=== PATIENT | male | born 1970 | race Caucasian/White ===

== ENCOUNTER 2019-05-05 22:19 | Emergency (ER) | payer OTHER ==
[2019-05-05] MEDS ORDERED: PROTONIX 40 MG IV IV ONE ×2 (22:45→23:01)
[2019-05-05] MEDS ORDERED: Sodium Chloride 0.9% 1000 ML 1,000 ML IV STA ×2 (22:45→22:48)
[2019-05-05] MEDS ORDERED: DUONEB 0.5-3 MG/3 ml Neb IH ONE ×2 (22:49→23:15)
--- NOTE | 2019-05-05 22:50 | ERPHSYRPT ---
- History of Present Illness Time Seen by Provider: 05/05/19 22:30 Source: patient Exam Limitations: no limitations Patient Subjective Stated Complaint: pt states that he has been coughing up blood tonight, pt states that he was coughing so bad that he through up blood, pt states that he had a biopsy of a mass on lung on 04/19/19, pt states that he had PET scan on 04/26/19, pt is suppose to f/u with md on results, pt states that he took tylenol earlier for fever of 101 Triage Nursing Assessment: pt came into er via ambulance, pt c/o coughing of blood, pt is coughing continoulsy, pt coughed up moderate amount of blood tinged sputum, lung sounds are wheezing throughout, resopiration rate 28 Physician History: Patient has been coughing up blood for approximately 2 weeks since having a lung biopsy. This evening he coughed up much more after waking up that concerned him, so he came in to be evaluated. Timing/Duration: week(s) (2), sudden, worse (in the evening of 05/05/2019) Cough Quality/Degree: moderate, blood streaked sputum Possible Cause: frequent episodes (since having the lung biospy) Modifying Factors: Worsens With: coughing Associated Symptoms: cough, wheezing, No fever, No chills, No chest pain/ soreness, No dizziness, No earache, No facial pain, No headache, No lightheadedness, No muscle aches, No nasal congestion, No nasal drainage, No shortness of breath, No sinus infection, No sore throat International travel in last 2 weeks: No Allergies/Adverse Reactions: aspirin Allergy (Severe, Verified 05/05/19 22:39) Hives Home Medications: Albuterol Sulfate [Ventolin Hfa] 2 puffs PO Q4-6HPRN PRN 05/05/19 [History] Fluticasone/Umeclidin/Vilanter [Trelegy Ellipta 100-62.5-25] 1 puff PO DAILY 12/16 [History] Hx Tetanus, Diphtheria Vaccination/Date Given: Yes Hx Influenza Vaccination/Date Given: No Hx Pneumococcal Vaccination/Date Given: No - Review of Systems Constitutional: No Fever, No Chills, No Fatigue Eyes: No Eye Pain, No Vision Changes Ears, Nose, & Throat: No Mouth Pain, No Mouth Swelling, No Throat Pain, No Painful Swallowing Respiratory: Cough, No Cyanosis, No Dyspnea Cardiac: No Chest Pain, No Palpitations, No Syncope Abdominal/Gastrointestinal: No Abdominal Pain, No Nausea, No Vomiting, No Hematemesis, No Hematochezia, No Melena Genitourinary Symptoms: No Hematuria, No Flank Pain Musculoskeletal: No Back Pain, No Neck Pain, No Myalgias Skin: No Pruritis, No Rash Neurological: No Dizziness, No Focal Weakness, No Headache, No Lethargy, No Parasthesia, No Seizure, No Speech Changes Psychological: No Anxiety Hematologic/Lymphatic: No Easy Bleeding, No Easy Bruising All Other Systems: Reviewed and Negative - Past Medical History Neurological History: No Pertinent History ENT History: No Pertinent History Cardiac History: No Pertinent History Respiratory History: COPD Endocrine Medical History: No Pertinent History Musculoskeletal History: No Pertinent History GI Medical History: No Pertinent History History: No Pertinent History Psycho-Social History: No Pertinent History Male Reproductive Disorders: No Pertinent History - Past Surgical History Past Surgical History: Yes Other Surgical History: surgery to left wrist and finger - Social History Smoking Status: Current every day smoker How long have you smoked: 35 Exposure to second hand smoke: Yes Drug Use: none Patient Lives Alone: No - Nursing Vital Signs Nursing Vital Signs: Initial Vital Signs Temperature 98.2 F 05/05/19 22:22 Pulse Rate 107 H 05/05/19 22:22 Respiratory Rate 22 05/05/19 22:22 Blood Pressure 130/84 05/05/19 22:22 O2 Sat by Pulse Oximetry 94 L 05/05/19 22:22 Pain Scale Pain Intensity 0 - Physical Exam General Appearance: no apparent distress, alert Eye Exam: PERRL/EOMI, eyes nml inspection, No scleral icterus Ears, Nose, Throat Exam: No pharynx normal, No moist mucous membranes Neck Exam: normal inspection, non-tender, supple, full range of motion, No meningismus Respiratory Exam: airway intact, diminished breath sounds (lower lung [place]), wheezing (lower lung [place]), No chest tenderness, No respiratory distress, No crackles/rales, No rhonchi, No stridor Cardiovascular Exam: regular rate/rhythm, normal heart sounds, normal peripheral pulses, capillary refill <2 sec Gastrointestinal/Abdomen Exam: soft, normal bowel sounds, No tenderness, No distention, No rebound Back Exam: normal inspection, No CVA tenderness, No vertebral tenderness, No rash Extremity Exam: normal inspection, normal range of motion, pelvis stable, No calf tenderness, No jese's sign, No pedal edema Neurologic Exam: alert, oriented x 3, cooperative, cleaner and preparer II-XII nml as tested, normal mood/affect, sensation nml, No motor deficits Skin Exam: normal color, warm, dry, No rash, No petechiae, No cyanosis SpO2 Interpretation: normal SpO2: 96 O2 Delivery: Room Air - Course Nursing assessment & vital signs reviewed: Yes EKG Interpreted by Me: RATE (85), Sinus Rhythm, NORMAL AXIS, NORMAL INTERVALS, NORMAL QRS, NORMAL ST-T, Other (negative previous EKG for comparison) - CT Exams Chest CT Interpretation: Other (per radiologist interpretation: There is a cavitary mass in the right lower lobe and right infrahilar region with thick irregular richter measuring 5.9 x 4.2 x 6.2 cm suspicious for malignancy versus atypical infection. There are additional patchy opacity in the right lower lobe and right middle lobe and to a lesser extent right upper lobe suspicious for possible pneumonitis. no enlarged lymph nodes. no pneumothorax. No pleural effusion. No cardiomegaly. No pericardial effusion. No aortic aneurysm. No acute fractures. No abnormal soft tissues.) Abdomen/Pelvis CT Interpretation: Other (pper radiologist interpretation: There is borderline hepatomegaly. Normal gallbladder bile ducts with no calcified stones. No ductal dilation. Pancreas normal no ductal dilation. No splenomegaly. Normal renal with no mass. 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 Left kidney is unremarkable. Stomach is unremarkable. No distraction or mucosal thickening of the stomach or bowels. No evidence of appendicitis. No free air no significant fluid collection in the intraperitoneal space. No abdominal aortic aneurysm. No enlarged lymph nodes. Bladder, reproductive, bone/joint, soft tissues are unremarkable as visualized. Overall impression: No acute CT pathology or mass in the abdomen or pelvis.) Ordered Tests: Active Orders 24 hr Category Date Time Status EKG-ER Only STAT Care 05/05/19 22:45 Active IV Insertion STAT Care 05/05/19 22:45 Active NPO (ED) STAT Care 05/05/19 22:45 Active ABDOMEN AND PELVIS W CONTRAST [CT] Stat Exams 05/05/19 22:46 Ordered CHEST WITH CONTRAST [CT] Stat Exams 05/05/19 22:48 Ordered AMYLASE Stat Lab 05/05/19 22:30 Completed BLOOD CULTURE Stat Lab 05/05/19 23:20 Received CBC W DIFF Stat Lab 05/05/19 22:30 Completed CMP Stat Lab 05/05/19 22:30 Completed ETHYL ALCOHOL Stat Lab 05/05/19 22:30 Completed LIPASE Stat Lab 05/05/19 22:30 Completed Lactic Acid Stat Lab 05/05/19 23:25 Completed PREALBUMIN Stat Lab 05/05/19 22:30 Completed PROTIME WITH INR Stat Lab 05/05/19 22:30 Completed PTT Stat Lab 05/05/19 22:30 Completed TROPONIN Q3H Lab 05/05/19 22:30 Completed TROPONIN Q3H Lab 05/06/19 01:45 Ordered TROPONIN Q3H Lab 05/06/19 04:45 Ordered TROPONIN Q3H Lab 05/06/19 07:45 Ordered TROPONIN Q3H Lab 05/06/19 10:45 Ordered UA W/RFX UR CULTURE Stat Lab 05/05/19 23:10 Completed Peak Expiratory Flow Rate ONCE RT 05/05/19 23:17 Active Respiratory Therapy Assessment DAILY RT 05/05/19 23:17 Active Respiratory Therapy Consult ONCE RT 05/05/19 23:17 Completed Medication Summary Discontinued Medications Generic Name Dose Route Start Last Admin Trade Name Freq PRN Reason Stop Dose Admin Albuterol/Ipratropium 3 ml 05/05/19 22:49 05/05/19 23:18 Duoneb 0.5-3 Mg/3 Ml Neb IH 05/05/19 22:50 3 ml STAT ONE Administration Albuterol/Ipratropium Confirm 05/05/19 23:15 Duoneb 0.5-3 Mg/3 Ml Neb Administered 05/05/19 23:16 Dose 3 ml IH .STK-MED ONE Sodium Chloride 1,000 mls @ 999 mls/hr 05/05/19 22:45 05/05/19 23:07 Sodium Chloride 0.9% 1000 Ml IV 05/05/19 23:45 999 mls/hr .Q1H1M STA Administration Sodium Chloride 1,000 mls @ 999 mls/hr 05/05/19 22:48 Sodium Chloride 0.9% 1000 Ml IV 05/05/19 23:48 .Q1H1M STA Sodium Chloride Confirm 05/05/19 23:01 Sodium Chloride 0.9% 1000 Ml Administered 05/05/19 23:02 Dose 1,000 mls @ ud .ROUTE .STK-MED ONE Sodium Chloride Confirm 05/06/19 00:36 Sodium Chloride 0.9% 1000 Ml Administered 05/06/19 00:37 Dose 1,000 mls @ ud .ROUTE .STK-MED ONE Pantoprazole Sodium 40 mg 05/05/19 22:45 05/05/19 23:07 Protonix 40 Mg Iv IV 05/05/19 22:46 40 mg STAT ONE Administration Pantoprazole Sodium Confirm 05/05/19 23:01 Protonix 40 Mg Iv Administered 05/05/19 23:02 Dose 40 mg IV .STK-MED ONE Potassium Chloride 40 meq 05/06/19 00:14 Klor Con 10 Meq PO 05/06/19 00:15 STAT ONE Potassium Chloride Confirm 05/06/19 00:36 Klor Con 10 Meq Administered 05/06/19 00:37 Dose 10 meq PO .STK-MED ONE Lab/Rad Data: Laboratory Result Diagrams 05/05/19 22:30 05/05/19 22:30 Laboratory Results 05/05/19 05/05/19 05/05/19 Range/Units 23:25 23:10 22:30 WBC (4.0-10.5) K/mm3 RBC (4.1-5.6) M/mm3 Hgb (12.5-18.0) gm/dl Hct (42-50) % MCV (78-100) fl MCH (26-32) pg MCHC (32-36) g/dl RDW (11.5-14.0) % Plt Count (150-450) K/mm3 MPV (6-9.5) fl Gran % (36.0-66.0) % Eos # (Auto) (0-0.5) Absolute Lymphs (auto) (1.0-4.6) Absolute Monos (auto) (0.0-1.3) Lymphocytes % (24.0-44.0) % Monocytes % (0.0-12.0) % Eosinophils % (0.00-5.0) % Basophils % (0.0-0.4) % Absolute Granulocytes (1.4-6.9) Basophils # (0-0.4) PT (8.83-12.87) SECONDS INR (0.8-3.0) APTT (24.1-36.1) SECONDS Sodium (137-145) mmol/L Potassium (3.5-5.1) mmol/L Chloride (98-107) mmol/L Carbon Dioxide (22-30) mmol/L Anion Gap (5-15) MEQ/L BUN (9-20) mg/dL Creatinine (0.66-1.25) mg/dL Estimated GFR ML/MIN Glucose (74-106) mg/dL Lactic Acid 1.6 (0.4-2.0) Calcium (8.4-10.2) mg/dL Total Bilirubin (0.2-1.3) mg/dL AST (17-59) U/L ALT (0-50) U/L Alkaline Phosphatase (38-126) U/L Troponin I (0.000-0.034) ng/mL Serum Total Protein (6.3-8.2) g/dL Albumin (3.5-5.0) g/dL Prealbumin (17.6-36.0) mg/dL Amylase (30-110) U/L Lipase (23-300) U/L Urine Color YELLOW (YELLOW) Urine Appearance CLEAR (CLEAR) Urine pH 6.0 (5-6) Ur Specific [place] 1.005 (1.005-1.025) Urine Protein NEGATIVE (Negative) Urine Ketones NEGATIVE (NEGATIVE) Urine Blood SMALL (0-5) Blane/ul Urine Nitrite NEGATIVE (NEGATIVE) Urine Bilirubin NEGATIVE (NEGATIVE) Urine Urobilinogen 2 (0-1) mg/dL Ur Leukocyte Esterase NEGATIVE (NEGATIVE) Urine WBC (Auto) NONE (0-5) /HPF Urine RBC (Auto) NONE (0-2) /HPF U Epithel Cells (Auto) NONE (FEW) /HPF Urine Bacteria (Auto) NONE (NEGATIVE) /HPF Urine Mucus (Auto) SLIGHT (NEGATIVE) /HPF Urine Culture Reflexed NO (NO) Urine Glucose NEGATIVE (NEGATIVE) mg/dL Ethyl Alcohol 132 H (0-10) mg/dL 05/05/19 05/05/19 05/05/19 Range/Units 22:30 22:30 22:30 WBC (4.0-10.5) K/mm3 RBC (4.1-5.6) M/mm3 Hgb (12.5-18.0) gm/dl Hct (42-50) % MCV (78-100) fl MCH (26-32) pg MCHC (32-36) g/dl RDW (11.5-14.0) % Plt Count (150-450) K/mm3 MPV (6-9.5) fl Gran % (36.0-66.0) % Eos # (Auto) (0-0.5) Absolute Lymphs (auto) (1.0-4.6) Absolute Monos (auto) (0.0-1.3) Lymphocytes % (24.0-44.0) % Monocytes % (0.0-12.0) % Eosinophils % (0.00-5.0) % Basophils % (0.0-0.4) % Absolute Granulocytes (1.4-6.9) Basophils # (0-0.4) PT 14.8 H (8.83-12.87) SECONDS INR 1.30 (0.8-3.0) APTT 27.8 (24.1-36.1) SECONDS Sodium (137-145) mmol/L Potassium (3.5-5.1) mmol/L Chloride (98-107) mmol/L Carbon Dioxide (22-30) mmol/L Anion Gap (5-15) MEQ/L BUN (9-20) mg/dL Creatinine (0.66-1.25) mg/dL Estimated GFR ML/MIN Glucose (74-106) mg/dL Lactic Acid (0.4-2.0) Calcium (8.4-10.2) mg/dL Total Bilirubin (0.2-1.3) mg/dL AST (17-59) U/L ALT (0-50) U/L Alkaline Phosphatase (38-126) U/L Troponin I (0.000-0.034) ng/mL Serum Total Protein (6.3-8.2) g/dL Albumin (3.5-5.0) g/dL Prealbumin 9.06 L (17.6-36.0) mg/dL Amylase (30-110) U/L Lipase (23-300) U/L Urine Color (YELLOW) Urine Appearance (CLEAR) Urine pH (5-6) Ur Specific [place] (1.005-1.025) Urine Protein (Negative) Urine Ketones (NEGATIVE) Urine Blood (0-5) Blane/ul Urine Nitrite (NEGATIVE) Urine Bilirubin (NEGATIVE) Urine Urobilinogen (0-1) mg/dL Ur Leukocyte Esterase (NEGATIVE) Urine WBC (Auto) (0-5) /HPF Urine RBC (Auto) (0-2) /HPF U Epithel Cells (Auto) (FEW) /HPF Urine Bacteria (Auto) (NEGATIVE) /HPF Urine Mucus (Auto) (NEGATIVE) /HPF Urine Culture Reflexed (NO) Urine Glucose (NEGATIVE) mg/dL Ethyl Alcohol (0-10) mg/dL 05/05/19 05/05/19 05/05/19 Range/Units 22:30 22:30 22:30 WBC 10.4 (4.0-10.5) K/mm3 RBC 4.45 (4.1-5.6) M/mm3 Hgb 13.6 (12.5-18.0) gm/dl Hct 40.2 L (42-50) % MCV 90.3 (78-100) fl MCH 30.6 (26-32) pg MCHC 33.8 (32-36) g/dl RDW 14.0 (11.5-14.0) % Plt Count 318 (150-450) K/mm3 MPV 8.7 (6-9.5) fl Gran % 75.3 H (36.0-66.0) % Eos # (Auto) 0.08 (0-0.5) Absolute Lymphs (auto) 1.58 (1.0-4.6) Absolute Monos (auto) 0.90 (0.0-1.3) Lymphocytes % 15.1 L (24.0-44.0) % Monocytes % 8.6 (0.0-12.0) % Eosinophils % 0.8 (0.00-5.0) % Basophils % 0.2 (0.0-0.4) % Absolute Granulocytes 7.86 H (1.4-6.9) Basophils # 0.02 (0-0.4) PT (8.83-12.87) SECONDS INR (0.8-3.0) APTT (24.1-36.1) SECONDS Sodium 131 L (137-145) mmol/L Potassium 3.2 L (3.5-5.1) mmol/L Chloride 92 L (98-107) mmol/L Carbon Dioxide 26 (22-30) mmol/L Anion Gap 16.7 H (5-15) MEQ/L BUN 7 L (9-20) mg/dL Creatinine 0.53 L (0.66-1.25) mg/dL Estimated GFR > 60.0 ML/MIN Glucose 137 H (74-106) mg/dL Lactic Acid (0.4-2.0) Calcium 8.9 (8.4-10.2) mg/dL Total Bilirubin 0.70 (0.2-1.3) mg/dL AST 21 (17-59) U/L ALT 14 (0-50) U/L Alkaline Phosphatase 91 (38-126) U/L Troponin I < 0.012 (0.000-0.034) ng/mL Serum Total Protein 7.5 (6.3-8.2) g/dL Albumin 3.7 (3.5-5.0) g/dL Prealbumin (17.6-36.0) mg/dL Amylase 67 (30-110) U/L Lipase 69 (23-300) U/L Urine Color (YELLOW) Urine Appearance (CLEAR) Urine pH (5-6) Ur Specific [place] (1.005-1.025) Urine Protein (Negative) Urine Ketones (NEGATIVE) Urine Blood (0-5) Blane/ul Urine Nitrite (NEGATIVE) Urine Bilirubin (NEGATIVE) Urine Urobilinogen (0-1) mg/dL Ur Leukocyte Esterase (NEGATIVE) Urine WBC (Auto) (0-5) /HPF Urine RBC (Auto) (0-2) /HPF U Epithel Cells (Auto) (FEW) /HPF Urine Bacteria (Auto) (NEGATIVE) /HPF Urine Mucus (Auto) (NEGATIVE) /HPF Urine Culture Reflexed (NO) Urine Glucose (NEGATIVE) mg/dL Ethyl Alcohol (0-10) mg/dL - Progress Progress: re-examined Air Movement: good Progress Note: 05/06/19 00:47 No further hemoptysis during his time in the emergency department. Patient has an appointment with Dr Wei, Medicare Interviewer, on 05/07/2019 to review his pathology results from his biopsies performed during bronchoscopy. Patient is resting comfortably without any distress. 05/06/19 00:54 Discussed the case with Dr Jonny Dillon, ED attending at [facility] emergency department. Dr Dillon accepted the patient for transfer. Blood Culture(s) Obtained: Yes Antibiotics given: No Counseled pt/family regarding: lab results, diagnosis, need for follow-up, rad results - Departure Departure Disposition: Transfer ([facility] in [place], [place]) Clinical Impression: Major hemoptysis, Pulmonary cavitary lesion, Opacity of lung on imaging study, Hypokalemia, Elevated blood pressure reading without diagnosis of hypertension Condition: Fair Critical Care Time: No
[2019-05-05 23:00] LABS: Absolute Neutrophil Ct (ANC) 7.86 (1.4-6.9); BASOPHIL % 0.2 % (0.0-0.4); Basophil (Absolute #) 0.02 (0-0.4); Eosinophil % 0.8 % (0.00-5.0); Eosinophil (Absolute #) 0.08 (0-0.5); Hematocrit 40.2 % (42-50); Hemoglobin 13.6 gm/dl (12.5-18.0); Lymphocyte (Absolute #) 1.58 (1.0-4.6); Lymphocytes % 15.1 % (24.0-44.0); Mean Cell Volume 90.3 fl (78-100); Mean Corpuscular Hemoglobin 30.6 pg (26-32); Mean Corpuscular Hgb Concent. 33.8 g/dl (32-36); Mean Platelet Volume 8.7 fl (6-9.5); Monocytes % 8.6 % (0.0-12.0); Neutrophil % 75.3 % (36.0-66.0); Platelet Count 318 K/mm3 (150-450); Red Blood Count 4.45 M/mm3 (4.1-5.6); White Blood Count 10.4 K/mm3 (4.0-10.5)
[2019-05-05] MEDS ORDERED: Sodium Chloride 0.9% 1000 ML 1,000 ML ONE (23:01)
[2019-05-05 23:04] LABS: INR 1.3 (0.8-3.0); PROTIME 14.8 SECONDS (8.83-12.87)
[2019-05-05 23:07] LABS: ALBUMIN 3.7 g/dL (3.5-5.0); ALKALINE PHOSPHATASE 91 U/L (38-126); AMYLASE 67 U/L (30-110); ANION GAP 16.7 MEQ/L (5-15); BLOOD UREA NITROGEN 7 mg/dL (9-20); CHLORIDE 92 mmol/L (98-107); Calcium 8.9 mg/dL (8.4-10.2); Carbon Dioxide 26 mmol/L (22-30); Creatinine 1 0.53 mg/dL (0.66-1.25); Glucose 137 mg/dL (74-106); LIPASE 69 U/L (23-300); Potassium 3.2 mmol/L (3.5-5.1); SGOT/AST 21 U/L (17-59); SGPT/ALT 14 U/L (0-50); SODIUM 131 mmol/L (137-145); Total Protein 7.5 g/dL (6.3-8.2)
[2019-05-05 23:35] LABS: Appearance CLEAR (CLEAR); Bilirubin NEGATIVE (NEGATIVE); Glucose NEGATIVE (NEGATIVE); Ketones NEGATIVE (NEGATIVE); Leukocyte Esterase NEGATIVE (NEGATIVE); Mucus SLIGHT /HPF (NEGATIVE); Nitrite NEGATIVE (NEGATIVE); Protein,Urine Dip NEGATIVE (Negative); Specific Gravity 1.005 (1.005-1.025); Urobilinogen 2 mg/dL (0-1)
[2019-05-05 23:38] LABS: Blood SMALL Ery/ul (0-5)
[2019-05-06] MEDS ORDERED: Klor Con 10 MEQ PO ONE ×2 (00:14→00:36)
[2019-05-06] MEDS ORDERED: Sodium Chloride 0.9% 1000 ML 1,000 ML ONE (00:36)
[2019-05-06 01:10] VITALS: BP 147/84; PULSE 113
[2019-05-06 02:02] VITALS: O2SAT 92
--- NOTE | 2019-05-06 08:57 | XRAY ---
Indication: Hemoptysis following right lung biopsy April 19, 2019. Multiple contiguous axial images obtained through the abdomen and pelvis using 80 cc Isovue 370 contrast only. Comparison: None CT chest reported separately. Noncontrasted stomach and bowel loops appear nonobstructed. Right kidney is absent. Gallbladder contracted without gallstones or biliary distention. No free fluid/air. Remaining liver, pancreas, spleen, adrenal glands, left kidney, left ureter, and bladder appear unremarkable. Minimal aortoiliac calcifications. No AAA or pathologic retroperitoneal lymphadenopathy. Osseous structures intact with minimal degenerative changes in the lumbar spine. Impression: 1. Absent right kidney either developmental versus total nephrectomy. 2. Remaining CT abdomen/pelvis with contrast exam is negative.. Comment: Preliminary interpretation was made by [facility]. No critical discrepancy. CT DI 5.37
--- NOTE | 2019-05-06 08:58 | XRAY ---
Indication: Hemoptysis following right lung biopsy April 19, 2019. Multiple contiguous axial images obtained through the chest using 80 cc Isovue 370 contrast. Comparison: None Lung are inflated with right infrahilar cavitary mass measuring 5.9 x 4.2 x 6.2 cm. Finding appears contiguous with mild right perihilar lymphadenopathy seen encompassing the right middle and right lower lobe pulmonary arteries along with effacement of the right middle/right lower lobe bronchi. Right mid to lower lung demonstrates diffuse patchy airspace opacities with several appearing consolidating especially in the right lower lobe. Subtle hazy airspace opacities seen in the medial left lower lobe. No large effusion. Heart is not enlarged. Aorta is normal in course and caliber. No pathologic mediastinal or left hilar lymphadenopathy. Bony thorax intact. CT abdomen/pelvis reported separately. Impression: 1. Right infrahilar cavitary mass with perihilar lymphadenopathy with mass effect as detailed worrisome for malignancy and presumed recently biopsied. 2. Right middle/lower lobe and subtle left lower lobe airspace disease. Comment: Preliminary interpretation was made by [facility]. No critical discrepancy. CT DI 11.84
== END 2019-05-06 02:00 | disposition short-term general hospital (02) ==
LOC: ED 22:19
DX: R04.2 Hemoptysis (principal); J98.4 Other disorders of lung; E87.6 Hypokalemia; R03.0 Elevated blood-pressure reading, without diagnosis of hypertension; R91.8 Other nonspecific abnormal finding of lung field; Z79.899 Other long term (current) drug therapy
CPT/HCPCS: 36000; 36415; 71260; 74177; 80053; 81001; 82150; 83605; 83690; 84134; 84484; 85025; 85610; 85730; 87040; 93005; 94150; 94640; 96360; 96361; 96374; 99285; G0480; 80307; A9270-GY

== ENCOUNTER 2019-11-12 17:24 | Emergency (ER) | payer MEDICAID ==
--- NOTE | 2019-11-12 17:53 | ERPHSYRPT ---
- History of Present Illness Time Seen by Provider: 11/12/19 17:40 Source: patient Exam Limitations: no limitations Physician History: Patient is a 49-year-old male presents to our ED with complaints of right-sided chest pain that has been progressively worsening over the past 3 days.. Patient has been experiencing right-sided chest pain intermittently and is currently wearing Holter monitor. Patient advises staff that he has a history of cardiac stents. He does not know when they were placed or how many. Patient is currently on Brilinta. Patient also has history of lung cancer. He is currently on chemo and radiation. Patient receives his care primarily at [facility]. Patient's pain described as pleuritic. Pain worse with deep inspiration. Pain improved somewhat at rest. No associated nausea vomiting or diaphoresis. No trauma. No fevers. No diarrhea. No rash. Symptoms are moderate in intensity. Patient voices no other complaints at this time. Activities at Onset: none Severity of Dyspnea-Max: moderate Severity of Dyspnea-Current: mild Possible Cause: no prior episodes Modifying Factors: Improves With: nothing Associated Symptoms: constant, chest pain/discomfort, painful breathing, No edema, No fever, No lightheadedness, No ankle swelling, No lightheadedness, No sweating Allergies/Adverse Reactions: aspirin Allergy (Severe, Verified 05/05/19 22:39) Hives Home Medications: Albuterol Sulfate [Ventolin Hfa] 2 puffs PO Q4-6HPRN PRN 05/05/19 [History] Atorvastatin Calcium 40 mg PO DAILY 11/12/19 [History] Fluticasone/Umeclidin/Vilanter [Trelegy Ellipta 100-62.5-25] 1 inh PO DAILY [History] Hydrocodone/Acetaminophen [Hydrocodone-Acetamin 5-325 mg] 1 each PO QAM [History] Ipratropium/Albuterol Sulfate [Iprat-Albut 0.5-3(2.5) mg/3 ml] 3 ml IH UD [History] Metoprolol Tartrate 50 mg [Lopressor 50 MG] 50 mg PO BID 11/12/19 [History ] Morphine Sulfate [Morphine Sulfate ER] 30 mg PO BID 11/12/19 [History] Ondansetron [Ondansetron Odt] 8 mg SL QAM 11/12/19 [History] Prochlorperazine Maleate 10 mg PO UD PRN 11/12/19 [History] Tamsulosin HCl 0.4 mg PO DAILY 11/12/19 [History] Ticagrelor [Brilinta] 90 mg PO BID 11/12/19 [History] Hx Tetanus, Diphtheria Vaccination/Date Given: Yes Hx Influenza Vaccination/Date Given: No Hx Pneumococcal Vaccination/Date Given: No - Review of Systems Constitutional: No Symptoms, No Fever, No Chills Eyes: No Symptoms Ears, Nose, & Throat: No Symptoms Respiratory: No Symptoms, No Cough, No Dyspnea Cardiac: No Symptoms, No Chest Pain, No Edema, No Syncope Abdominal/Gastrointestinal: No Symptoms, No Abdominal Pain, No Nausea, No Vomiting, No Diarrhea Genitourinary Symptoms: No Symptoms, No Dysuria Musculoskeletal: No Symptoms, No Back Pain, No Neck Pain Skin: No Symptoms, No Rash Neurological: No Symptoms, No Dizziness, No Focal Weakness, No Sensory Changes Psychological: No Symptoms Endocrine: No Symptoms Hematologic/Lymphatic: No Symptoms Immunological/Allergic: No Symptoms All Other Systems: Reviewed and Negative - Past Medical History Neurological History: No Pertinent History ENT History: No Pertinent History Cardiac History: No Pertinent History Respiratory History: COPD Endocrine Medical History: No Pertinent History Musculoskeletal History: No Pertinent History GI Medical History: No Pertinent History History: No Pertinent History Psycho-Social History: No Pertinent History Male Reproductive Disorders: No Pertinent History - Past Surgical History Past Surgical History: Yes Other Surgical History: surgery to left wrist and finger - Social History Smoking Status: Current every day smoker How long have you smoked: 35 Exposure to second hand smoke: Yes Drug Use: none Patient Lives Alone: No - Nursing Vital Signs Nursing Vital Signs: Initial Vital Signs Temperature 99.5 F 11/12/19 17:30 Pulse Rate 88 11/12/19 17:30 Respiratory Rate 26 H 11/12/19 17:30 Blood Pressure 111/72 11/12/19 17:30 O2 Sat by Pulse Oximetry 95 11/12/19 17:30 Pain Scale Pain Intensity 6 - Physical Exam General Appearance: no apparent distress, alert Eye Exam: PERRL/EOMI Ears, Nose, Throat Exam: No hearing grossly normal, No normal ENT inspection, No normal pharynx, No abnormal TM (R), No abnormal TM (L) Neck Exam: normal inspection, supple, full range of motion, No meningismus, No limited range of motion, No tenderness lateral Respiratory Exam: normal breath sounds, lungs clear, No chest tenderness, No respiratory distress, No crackles/rales, No wheezing Cardiovascular/Chest Exam: normal heart sounds, regular rate/rhythm, normal peripheral pulses, No edema Abdominal/Gastrointestinal Exam: soft, No tenderness, No distention, No mass, No pulsatile mass Rectal Exam: deferred Extremity Exam: non-tender, normal range of motion, normal inspection, no calf tenderness, no pedal edema Peripheral Pulses Exam: dorsalis-pedis (R): 2+, dorsalis-pedis (L): 2+ Neurologic Exam: alert, oriented x 3, cooperative, rotor plate washer II-XII nml as tested, sensation nml, No motor deficits Skin Exam: normal color, warm, No dry, No rash, No petechiae, No jaundice SpO2 Interpretation: normal SpO2: 95 O2 Delivery: Room Air - Course Nursing assessment & vital signs reviewed: Yes EKG Interpreted by Me: RATE (87), Sinus Rhythm, NORMAL AXIS, NORMAL INTERVALS - Radiology Exams Chest X-ray Interpretation: Interpreted by me (Chest x-ray reveals right-sided pleural effusion with associated atelectasis. Bony thorax intact. No pneumothorax. No opacities or consolidations.) Ordered Tests: Active Orders 24 hr Category Date Time Status Estimator Printing STAT Care 11/12/19 17:43 Active EKG-ER Only STAT Care 11/12/19 17:41 Active IV Insertion STAT Care 11/12/19 17:56 Active IV Insertion-2nd Peripheral STAT Care 11/12/19 17:56 Active Isolation, Initiate & Maintain Q4H Care 11/12/19 18:10 Active Pulse Oximetry (ED) STAT Care 11/12/19 17:41 Active CHEST 1 VIEW (PORTABLE) Stat Exams 11/12/19 17:43 Taken ARTERIAL BLOOD GASES Stat Lab 11/12/19 17:41 Completed BLOOD CULTURE Stat Lab 11/12/19 18:01 Received CBC W DIFF Stat Lab 11/12/19 18:01 Completed CMP Stat Lab 11/12/19 18:01 Completed D-DIMER QUANTITATIVE Stat Lab 11/12/19 18:01 Completed Lactic Acid Stat Lab 11/12/19 17:41 Completed MAGNESIUM Stat Lab 11/12/19 18:01 Completed NT PRO BNP Stat Lab 11/12/19 18:01 Completed TROPONIN Q3H Lab 11/12/19 18:01 Completed TROPONIN Q3H Lab 11/12/19 20:45 Ordered TROPONIN Q3H Lab 11/12/19 23:45 Ordered TROPONIN Q3H Lab 11/13/19 02:45 Ordered TROPONIN Q3H Lab 11/13/19 05:45 Ordered UA W/RFX UR CULTURE Stat Lab 11/12/19 17:43 Uncollected Lab/Rad Data: Laboratory Result Diagrams 11/12/19 18:01 11/12/19 18:01 Laboratory Results 11/12/19 11/12/19 11/12/19 Range/Units 18:01 18:01 18:01 WBC (4.0-10.5) K/mm3 RBC (4.1-5.6) M/mm3 Hgb (12.5-18.0) gm/dl Hct (42-50) % MCV (78-100) fl MCH (26-32) pg MCHC (32-36) g/dl RDW (11.5-14.0) % Plt Count (150-450) K/mm3 MPV (7.5-11.0) fl Gran % (36.0-66.0) % Eos # (Auto) (0-0.5) Absolute Lymphs (auto) (1.0-4.6) Absolute Monos (auto) (0.0-1.3) Lymphocytes % (24.0-44.0) % Monocytes % (0.0-12.0) % Eosinophils % (0.00-5.0) % Basophils % (0.0-0.4) % Absolute Granulocytes (1.4-6.9) Basophils # (0-0.4) D-Dimer 1233 H* (215-500) ng/mL Puncture Site pCO2 (35-45) mmHg pO2 (75-100) mmHg Base Excess (-2.0-2.0) O2 Saturation (94-100) g/dF ABG pH (7.35-7.45) ABG HCO3 (22-28) ABG O2 Sat (Measured) (95-100) % Maurice Test A-a Gradient a/A Ratio Hemoglobin Carboxyhemoglobin (0.0-6.9) % THgb Methemoglobin (1.4-1.5) % Potassium (3.5-5.1) Temperature C POC O2 Flow Rate % Sodium (137-145) mmol/L Chloride (98-107) mmol/L Carbon Dioxide (22-30) mmol/L Anion Gap (5-15) MEQ/L BUN (9-20) mg/dL Creatinine (0.66-1.25) mg/dL Estimated GFR ML/MIN Glucose (74-106) mg/dL Lactic Acid (0.4-2.0) Calcium (8.4-10.2) mg/dL Magnesium (1.6-2.3) mg/dL Total Bilirubin (0.2-1.3) mg/dL AST (17-59) U/L ALT (0-50) U/L Alkaline Phosphatase (38-126) U/L Troponin I < 0.012 (0.000-0.034) ng/mL NT-Pro-B Natriuret Pep (0-450) pg/mL Serum Total Protein (6.3-8.2) g/dL Albumin (3.5-5.0) g/dL Influenza Type A Ag NEGATIVE (NEGATIVE) Influenza Type B Ag NEGATIVE (NEGATIVE) RSV (PCR) NEGATIVE (Negative) 11/12/19 11/12/19 11/12/19 Range/Units 18:01 18:01 17:41 WBC 10.3 (4.0-10.5) K/mm3 RBC 2.66 L (4.1-5.6) M/mm3 Hgb 9.1 L (12.5-18.0) gm/dl Hct 27.3 L (42-50) % MCV 102.6 H (78-100) fl MCH 34.2 H (26-32) pg MCHC 33.3 (32-36) g/dl RDW 15.9 H (11.5-14.0) % Plt Count 273 (150-450) K/mm3 MPV 8.9 (7.5-11.0) fl Gran % 94.3 H (36.0-66.0) % Eos # (Auto) 0.25 (0-0.5) Absolute Lymphs (auto) 0.25 L (1.0-4.6) Absolute Monos (auto) 0.08 (0.0-1.3) Lymphocytes % 2.4 L (24.0-44.0) % Monocytes % 0.8 (0.0-12.0) % Eosinophils % 2.4 (0.00-5.0) % Basophils % 0.1 (0.0-0.4) % Absolute Granulocytes 9.75 H (1.4-6.9) Basophils # 0.01 (0-0.4) D-Dimer (215-500) ng/mL Puncture Site LEFT BRACHIAL pCO2 33 L (35-45) mmHg pO2 56 L (75-100) mmHg Base Excess 0.9 (-2.0-2.0) O2 Saturation 88.0 L (94-100) g/dF ABG pH 7.47 H (7.35-7.45) ABG HCO3 24.0 (22-28) ABG O2 Sat (Measured) 92.7 L (95-100) % Maurice Test NOT APPLICABLE A-a Gradient 52 a/A Ratio 0.52 Hemoglobin 8.4 Carboxyhemoglobin 4.0 (0.0-6.9) % THgb Methemoglobin 1.0 L (1.4-1.5) % Potassium 4.4 4.5 (3.5-5.1) Temperature 37.0 C POC O2 Flow Rate 21 % Sodium 133 L (137-145) mmol/L Chloride 100 (98-107) mmol/L Carbon Dioxide 24 (22-30) mmol/L Anion Gap 13.6 (5-15) MEQ/L BUN 20 (9-20) mg/dL Creatinine 1.61 H (0.66-1.25) mg/dL Estimated GFR 48.7 ML/MIN Glucose 92 (74-106) mg/dL Lactic Acid 0.6 (0.4-2.0) Calcium 9.0 (8.4-10.2) mg/dL Magnesium 1.8 (1.6-2.3) mg/dL Total Bilirubin 0.90 (0.2-1.3) mg/dL AST 130 H (17-59) U/L ALT 132 H (0-50) U/L Alkaline Phosphatase 122 (38-126) U/L Troponin I (0.000-0.034) ng/mL NT-Pro-B Natriuret Pep 1030 H (0-450) pg/mL Serum Total Protein 6.6 (6.3-8.2) g/dL Albumin 3.5 (3.5-5.0) g/dL Influenza Type A Ag (NEGATIVE) Influenza Type B Ag (NEGATIVE) RSV (PCR) (Negative) - Progress Progress: improved Air Movement: good Progress Note: 11/12/19 19:24 Patient reassessed. Patient declined pain medication. Patient agrees to transfer to [facility] for further evaluation and treatment. Case discussed with Dr. Marcial from [facility] who accepts transfer. Plan of care discussed with patient. Patient voices no other complaints or concerns at this time. Patient is stable for transport. Patient will be swab for COVID in our ED. COVID precautions enacted. Patient will have a PE rule out study at [facility]. Patient cannot have CTA due to his kidney function. We do not have VQ scan available until Friday. Patient prefers transfer. 11/12/19 19:38 Blood Culture(s) Obtained: Yes Antibiotics given: No Counseled pt/family regarding: lab results, diagnosis, rad results - Departure Departure Disposition: Transfer Clinical Impression: Megaloblastic anemia, ACS (acute coronary syndrome), Chronic renal insufficiency, stage III (moderate), Elevated d-dimer, COVID-19, Elevated brain natriuretic peptide (BNP) level Condition: Stable Critical Care Time: No Referrals: DOCTOR,NO FAMILY [Primary Care Provider] -
[2019-11-12 18:05] LABS: Absolute Neutrophil Ct (ANC) 9.75 (1.4-6.9); BASOPHIL % 0.1 % (0.0-0.4); Basophil (Absolute #) 0.01 (0-0.4); Eosinophil % 2.4 % (0.00-5.0); Eosinophil (Absolute #) 0.25 (0-0.5); Hematocrit 27.3 % (42-50); Hemoglobin 9.1 gm/dl (12.5-18.0); Lymphocyte (Absolute #) 0.25 (1.0-4.6); Lymphocytes % 2.4 % (24.0-44.0); Mean Cell Volume 102.6 fl (78-100); Mean Corpuscular Hemoglobin 34.2 pg (26-32); Mean Corpuscular Hgb Concent. 33.3 g/dl (32-36); Mean Platelet Volume 8.9 fl (7.5-11.0); Monocyte (Absolute #) 0.08 (0.0-1.3); Monocytes % 0.8 % (0.0-12.0); Neutrophil % 94.3 % (36.0-66.0); Platelet Count 273 K/mm3 (150-450); Red Blood Count 2.66 M/mm3 (4.1-5.6); Red Cell Distribution Width 15.9 % (11.5-14.0); White Blood Count 10.3 K/mm3 (4.0-10.5)
[2019-11-12 18:36] LABS: INFLUENZA A NEGATIVE (NEGATIVE); INFLUENZA B NEGATIVE (NEGATIVE); RESPIRATORY SYNCTIAL VIRUS NEGATIVE (Negative)
[2019-11-12 18:47] LABS: ALBUMIN 3.5 g/dL (3.5-5.0); ANION GAP 13.6 MEQ/L (5-15); BILIRUBIN,TOTAL 0.9 mg/dL (0.2-1.3); Creatinine 1 1.61 mg/dL (0.66-1.25); MAGNESIUM 1.8 mg/dL (1.6-2.3); Potassium 4.4 mmol/L (3.5-5.1); Total Protein 6.6 g/dL (6.3-8.2)
[2019-11-12 18:49] LABS: A-aADO2 52; ABG HEMOGLOBIN 8.4; ABG POTASSIUM 4.5 (3.5-5.1); ABG SITE LEFT BRACHIAL; ARTERIAL BLD GAS O2 SATURATION 92.7 % (95-100); ARTERIAL BLOOD GAS BASE EXCESS 0.9 (-2.0-2.0); ARTERIAL BLOOD GAS FIO2 21 %; ARTERIAL BLOOD GAS PCO2 33 mmHg (35-45); ARTERIAL BLOOD GAS PO2 56 mmHg (75-100); ARTERIAL BLOOD GAS pH 7.47 (7.35-7.45); Lactic Acid 0.6 (0.4-2.0); paO2 pAO1 0.52
[2019-11-12 20:04] VITALS: BP 99/62; PULSE 88; O2SAT 98
--- NOTE | 2019-11-13 07:37 | XRAY ---
Indication: Short of breath. Comparison: None Portable chest demonstrates moderate right base consolidation favoring a combination of effusion/atelectasis. Remaining heart and left lung unremarkable with left Port-A-Cath. Bony thorax intact.
== END 2019-11-12 20:00 | disposition short-term general hospital (02) ==
LOC: ED 17:24
DX: D53.1 Other megaloblastic anemias, not elsewhere classified (principal); I24.9 Acute ischemic heart disease, unspecified; I25.10 Atherosclerotic heart disease of native coronary artery without angina pectoris; N18.3 Chronic kidney disease, stage 3 (moderate); U07.1 COVID-19; R79.89 Other specified abnormal findings of blood chemistry; Z95.5 Presence of coronary angioplasty implant and graft; Z85.118 Personal history of other malignant neoplasm of bronchus and lung; Z79.899 Other long term (current) drug therapy; J44.9 Chronic obstructive pulmonary disease, unspecified; Z72.0 Tobacco use; J90 Pleural effusion, not elsewhere classified
CPT/HCPCS: 36000; 36415; 36600; 71045; 80053; 82375; 82803; 83605; 83735; 83880; 84484; 85025; 85379; 87040; 87631; 93005; 93041; 94760; 99285; U0002

== ENCOUNTER 2020-01-04 16:43 | Emergency (ER) | payer MEDICAID ==
[2020-01-04] MEDS ORDERED: SODIUM BICARBONATE 50 MEQ/50 ML ABBOJECT IV ONE (16:44)
[2020-01-04] MEDS ORDERED: EPINEPHRINE ABBOJECT 1 MG IV ONE (16:44)
[2020-01-04] MEDS ORDERED: Sodium Chloride 0.9% 1000 ML 1,000 ML IV ONE (16:44)
[2020-01-04 16:47] LABS: Hematocrit 29.7 % (42-50); Hemoglobin 9.1 gm/dl (12.5-18.0); Mean Cell Volume 116.5 fl (78-100); Mean Corpuscular Hemoglobin 35.7 pg (26-32); Mean Corpuscular Hgb Concent. 30.6 g/dl (32-36); Platelet Count 263 K/mm3 (150-450); Red Blood Count 2.55 M/mm3 (4.1-5.6); Red Cell Distribution Width 17.7 % (11.5-14.0); White Blood Count 11.9 K/mm3 (4.0-10.5)
[2020-01-04] MEDS ORDERED: Cardizem IV 50 MG/10 ML IV ONE ×2 (16:50→16:54)
[2020-01-04 16:52] LABS: INR 1.25 (0.8-3.0); PROTIME 14.2 SECONDS (8.83-12.87)
[2020-01-04] MEDS ORDERED: LEVOPHED 4 MG/4 ML 4,000 MCG in Dextrose 5%/Water IV Soln. 500 ML 500 ML IV PRN (16:56)
[2020-01-04] MEDS ORDERED: CARDIZEM DRIP 100 MG/100 ML D5W 100 ML IV ONE (17:02)
[2020-01-04] MEDS ORDERED: CARDIZEM DRIP 100 MG/100 ML D5W 100 ML IV PRN (17:05)
[2020-01-04 17:08] LABS: ALBUMIN 2.6 g/dL (3.5-5.0); ALKALINE PHOSPHATASE 149 U/L (38-126); ANION GAP 15.3 MEQ/L (5-15); BLOOD UREA NITROGEN 18 mg/dL (9-20); CHLORIDE 108 mmol/L (98-107); Calcium 7.8 mg/dL (8.4-10.2); Carbon Dioxide 20 mmol/L (22-30); Creatinine 1 1.24 mg/dL (0.66-1.25); Glucose 235 mg/dL (74-106); MAGNESIUM 2.3 mg/dL (1.6-2.3); Potassium 3.1 mmol/L (3.5-5.1); SGOT/AST 44 U/L (17-59); SGPT/ALT 32 U/L (0-50); SODIUM 141 mmol/L (137-145); TROPONIN 0.027 ng/mL (0.000-0.034); Total Protein 5.1 g/dL (6.3-8.2)
--- NOTE | 2020-01-04 17:15 | ERPHSYRPT ---
- History of Present Illness Time Seen by Provider: 01/04/20 16:45 Source: family, EMS Exam Limitations: clinical condition Physician History: This is a 49-year-old gentleman with a history of coronary artery disease and recent myocardial infarction July 2019, diagnosis of lung cancer, renal disease, and recent admission for pneumonia approximately 2 weeks ago who presents in cardiac arrest. EMS was contacted approximately 20 minutes prior to arrival to our emergency department. Upon arrival, the patient was unresponsive and did not have a palpable pulse and was not breathing on his own. Patient was intubated at the scene and CPR was started. Patient received 4 intravenous epinephrine and 4 A of Narcan prior to arrival to our emergency department. Upon arrival into the emergency department, the patient's pupils were fixed and dilated, the patient had no spontaneous breath sounds and no spontaneous heart tones. There is no palpable pulse. However, on the monitor there appeared to be a rhythm. The patient appeared to be in PEA. The patient's later stated that the patient was having chest pain and left arm numbness earlier in the day. Patient had stopped his Brilinta anticoagulation medicine secondary to a scheduled portacatheter placement. This was scheduled for December. Timing/Duration: today Activities at Onset: none Quality: aching (Numbness left arm earlier today and associated chest pain.) Location: substernal Chest Pain Radiation: arm (Left arm) Severity of Pain-Max: mild Severity of Pain-Current: mild Modifying Factors: Worsens With: aspirin (Patient is allergic to aspirin) Nitro Today/Relief: no nitro taken today Aspirin Treatment Today: no aspirin today Prior Chest Pain/Cardiac Workup: cardiac cath, heart attack, recently se en/treated, recent hospitalization Allergies/Adverse Reactions: aspirin Allergy (Severe, Verified 05/05/19 22:39) Hives Home Medications: Albuterol Sulfate [Ventolin Hfa] 2 puffs PO Q4-6HPRN PRN 05/05/19 [History] Atorvastatin Calcium 40 mg PO DAILY 11/12/19 [History] Fluticasone/Umeclidin/Vilanter [Trelegy Ellipta 100-62.5-25] 1 inh PO DAILY 11/12/19 [History] Hydrocodone/Acetaminophen [Hydrocodone-Acetamin 5-325 mg] 1 each PO QAM 11/12/19 [History] Ipratropium/Albuterol Sulfate [Iprat-Albut 0.5-3(2.5) mg/3 ml] 3 ml IH UD 11/12/19 [History] Metoprolol Tartrate 50 mg [Lopressor 50 MG] 50 mg PO BID 11/12/19 [History] Morphine Sulfate [Morphine Sulfate ER] 30 mg PO BID 11/12/19 [History] Ondansetron [Ondansetron Odt] 8 mg SL QAM 11/12/19 [History] Prochlorperazine Maleate 10 mg PO UD PRN 11/12/19 [History] Tamsulosin HCl 0.4 mg PO DAILY 11/12/19 [History] Ticagrelor [Brilinta] 90 mg PO BID 11/12/19 [History] Hx Tetanus, Diphtheria Vaccination/Date Given: Yes Hx Influenza Vaccination/Date Given: No Hx Pneumococcal Vaccination/Date Given: No Travel Risk - International Travel Have you traveled outside of the country in past 3 weeks: No - Coronavirus Screening Are you exhibiting any of the following symptoms?: No Close contact with a COVID-19 positive Pt in past 14-21 Days: No - Review of Systems Constitutional: No Symptoms Eyes: No Symptoms Ears, Nose, & Throat: No Symptoms Respiratory: No Symptoms Cardiac: Chest Pain (Earlier in the day) Abdominal/Gastrointestinal: No Symptoms Genitourinary Symptoms: No Symptoms Musculoskeletal: No Symptoms Skin: No Symptoms Neurological: No Symptoms Psychological: No Symptoms Endocrine: No Symptoms Hematologic/Lymphatic: No Symptoms Immunological/Allergic: No Symptoms All Other Systems: Reviewed and Negative - Past Medical History Neurological History: No Pertinent History ENT History: No Pertinent History Cardiac History: No Pertinent History Respiratory History: COPD Endocrine Medical History: No Pertinent History Musculoskeletal History: No Pertinent History GI Medical History: No Pertinent History History: No Pertinent History Psycho-Social History: No Pertinent History Male Reproductive Disorders: No Pertinent History - Past Surgical History Past Surgical History: Yes Cardiac: Cardiac Catheterization, Cardiac Stent Other Surgical History: surgery to left wrist and finger - Social History Smoking Status: Current every day smoker How long have you smoked: 35 Exposure to second hand smoke: Yes Drug Use: none Patient Lives Alone: No - Nursing Vital Signs Nursing Vital Signs: Initial Vital Signs Pulse Rate 145 H 01/04/20 16:51 Blood Pressure 92/58 01/04/20 16:51 O2 Sat by Pulse Oximetry 100 01/04/20 16:51 - Physical Exam General Appearance: other (CPR in progress) Eye Exam: other (Bilateral pupils dilated and unresponsive) Neck Exam: normal inspection Respiratory Exam: lungs clear, other (Upon arrival into the emergency department the patient was orotracheally intubated and breath sounds were stronger on the right side than the left. The ET tube was then repositioned and there were equ al breath sounds bilaterally after repositioning) Cardiovascular Exam: other (Patient arrives with CPR in progress. There were no palpable pulses and no audible spontaneous breath sounds) Gastrointestinal/Abdomen Exam: soft, No distention Rectal Exam: not done Back Exam: normal inspection Extremity Exam: normal inspection (3) Neurologic Exam: other (Patient unresponsive and) Skin Exam: mottled Lymphatic Exam: No adenopathy SpO2 Interpretation: ABG ordered, airway management int. O2 Delivery: Ventilator - Course Nursing assessment & vital signs reviewed: Yes EKG Interpreted by Me: RATE (150), A-fib, NORMAL AXIS, NORMAL INTERVALS, ST Elev (No ST elevation in inferior leads.), Other (No prior EKG to compare to.) Ordered Tests: Active Orders 24 hr Category Date Time Status CHEST 1 VIEW (PORTABLE) Stat Exams 01/04/20 16:58 Taken KUB Stat Exams 01/04/20 16:58 Taken CBC W DIFF Stat Lab 01/04/20 16:35 Completed CMP Stat Lab 01/04/20 16:35 Completed D-DIMER QUANTITATIVE Stat Lab 01/04/20 16:35 Completed Lactic Acid Stat Lab 01/04/20 16:35 Received MAGNESIUM Stat Lab 01/04/20 16:35 Completed Manual Differential NC Stat Lab 01/04/20 16:35 Completed PROTIME WITH INR Stat Lab 01/04/20 16:35 Completed TROPONIN Stat Lab 01/04/20 16:35 Completed UA W/RFX UR CULTURE Stat Lab 01/04/20 16:35 Received Urine Triage Profile Stat Lab 01/04/20 16:35 Received Medication Summary Generic Name Dose Route Start Last Admin Trade Name Freq PRN Reason Stop Dose Admin Norepinephrine 4,000 mcg/ 504 mls @ 37.8 mls/hr 01/04/20 16:56 Dextrose IV 02/03/20 16:55 .[id number] PRN SEVERE HYPOTENSION Protocol 5 MCG/MIN Diltiazem HCl 100 mls @ 5 mls/hr 01/04/20 17:05 Cardizem Drip 100 Mg/100 Ml D5w IV 02/03/20 17:04 .Q20H PRN HEART RATE/ A-FIB Protocol 5 MG/HR Midazolam HCl 50 mg/ Sodium 250 mls @ 20 mls/hr 01/04/20 17:34 Chloride IV 02/03/20 17:33 .[id number] PRN SEDATION Protocol 4 MG/HR Potassium Chloride 20 meq in 100 mls @ 50 mls/hr 01/04/20 17:36 Potassium Chloride 20 Meq In Water 100ml IV 01/04/20 19:35 STAT ONE Discontinued Medications Generic Name Dose Route Start Last Admin Trade Name Freq PRN Reason Stop Dose Admin Diltiazem HCl Confirm 01/04/20 16:50 Cardizem Iv 50 Mg/10 Ml Administered 01/04/20 16:51 Dose 50 mg IV .STK-MED ONE Diltiazem HCl 20 mg 01/04/20 16:54 Cardizem Iv 50 Mg/10 Ml IV 01/04/20 16:55 STAT ONE Diltiazem HCl Confirm 01/04/20 17:02 Cardizem Drip 100 Mg/100 Ml D5w Administered 01/04/20 17:03 Dose 100 mls @ ud IV .STK-MED ONE Lab/Rad Data: Laboratory Result Diagrams 01/04/20 16:35 01/04/20 16:35 Laboratory Results 01/04/20 01/04/20 01/04/20 Range/Units 16:35 16:35 16:35 WBC 11.9 H (4.0-10.5) K/mm3 RBC 2.55 L (4.1-5.6) M/mm3 Hgb 9.1 L (12.5-18.0) gm/dl Hct 29.7 L (42-50) % MCV 116.5 H (78-100) fl MCH 35.7 H (26-32) pg MCHC 30.6 L (32-36) g/dl RDW 17.7 H (11.5-14.0) % Plt Count 263 (150-450) K/mm3 MPV 9.0 (7.5-11.0) fl PT 14.2 H (8.83-12.87) SECONDS INR 1.25 (0.8-3.0) D-Dimer 27403 H* (215-500) ng/mL Sodium 141 (137-145) mmol/L Potassium 3.1 L (3.5-5.1) mmol/L Chloride 108 H (98-107) mmol/L Carbon Dioxide 20 L (22-30) mmol/L Anion Gap 15.3 H (5-15) MEQ/L BUN 18 (9-20) mg/dL Creatinine 1.24 (0.66-1.25) mg/dL Estimated GFR > 60.0 ML/MIN Glucose 235 H (74-106) mg/dL Calcium 7.8 L (8.4-10.2) mg/dL Magnesium 2.3 (1.6-2.3) mg/dL Total Bilirubin 0.50 (0.2-1.3) mg/dL AST 44 (17-59) U/L ALT 32 (0-50) U/L Alkaline Phosphatase 149 H (38-126) U/L Troponin I 0.027 (0.000-0.034) ng/mL Serum Total Protein 5.1 L (6.3-8.2) g/dL Albumin 2.6 L (3.5-5.0) g/dL - Progress Progress: improved Air Movement: good Progress Note: 01/04/20 17:20 Second EKG that was performed after patient received 20 mg intravenous Cardizem was performed at 5:02 PM on 01/04/2020. Heart rate is 96 the patient is in sinus rhythm there is still persistent minimal ST elevation in the inferior leads. A third EKG was performed just after receiving the 20 mg intravenous Cardizem as well as a low-dose Levophed. The patient's the third EKG was performed on 01/04/2020 at 5:09 PM. This shows sinus tachycardia with a heart rate of [address] elevation that is persistent in the inferior leads. There is some ST depression in the anterior leads. Chest x-ray reveals the ET tube within the trachea above the bifurcation and a good position. KUB reveals the tip of the orogastric tube within the gastric lumen. Medical decision making: This patient came to us from home 20 minutes after CPR was started by EMS service. The patient arrives in PEA. The patient received 2 A of bicarb, and 2 doses of epinephrine with continued CPR. Patient was already orotracheally intubated at the scene. The patient's pulse returned. The EKG shows atrial fibrillation and Cardizem bolus followed by drip was started. Patient blood pressure was initially adequate then dropped in the 80s systolic and we started Levophed at low-dose. We obtained more history from the patient's spouse upon her arrival to the emergency department. I contacted [facility] and spoke with Dr. Chou the emergency room physician. I gave him the information I had at the time and the patient's vital signs at that time. Dr. Chou accepts the patient for transfer. Patient is currently more stable. I reviewed these issues with the patient's spouse. 01/04/20 17:40 EMS return to transport this patient to [facility] in [place]. They are just now informing us that she did receive one 200 J defibrillation Blood Culture(s) Obtained: No Antibiotics given: No Counseled pt/family regarding: lab results, diagnosis, need for follow-up, rad results - Departure Departure Disposition: Transfer Clinical Impression: Cardiopulmonary arrest with successful resuscitation Condition: Critical Critical Care Time: Yes Critical Care Time(excluding separately billable procedures): Critical 30-74 mins Referrals: DOCTOR,NO FAMILY [Primary Care Provider] -
[2020-01-04] MEDS ORDERED: Versed 50 MG/ 10 Ml MDV*** 50 MG in Sodium Chloride 0.9% 250 ML 240 ML IV PRN (17:34)
[2020-01-04 17:36] VITALS: O2SAT 100
[2020-01-04] MEDS ORDERED: POTASSIUM CHLORIDE 20 mEq IN WATER 100ML 20 MEQ/100 ML BAG IV ONE (17:36)
[2020-01-04] MEDS ORDERED: Versed 2 MG/2 ML Injection IV ONE (17:46)
[2020-01-04] MEDS ORDERED: VERSED 5 MG/5 ML ONE (17:47)
[2020-01-04] MEDS ORDERED: ENOXAPARIN SODIUM SQ ONE ×2 (17:51)
[2020-01-04] MEDS ORDERED: POTASSIUM CHLORIDE 20 mEq IN WATER 100ML 100 ML IV ONE (17:55)
[2020-01-04 18:23] LABS: A-aADO2 469; ABG HEMOGLOBIN 9.4; ABG POTASSIUM 3.3 (3.5-5.1); ARTERIAL BLD GAS O2 SATURATION 99.2 % (95-100); ARTERIAL BLOOD GAS BASE EXCESS -13.4 (-2.0-2.0); ARTERIAL BLOOD GAS FIO2 100 %; ARTERIAL BLOOD GAS PCO2 57 mmHg (35-45); ARTERIAL BLOOD GAS PO2 173 mmHg (75-100); ARTERIAL BLOOD GAS pH 7.08 (7.35-7.45); CARBOXYHEMOGLOBIN 6.7 % THgb (0.0-6.9); HCO3- 16.9 (22-28); HGB O2 SAT 92.1 g/dF (94-100); Methhemoglobin 0.5 % (1.4-1.5); paO2 pAO1 0.27
[2020-01-04 18:24] LABS: ABG SITE RIGHT RADIAL; ALLEN TEST OK? YES
[2020-01-04 18:29] VITALS: BP 114/71; PULSE 106
[2020-01-04 19:04] LABS: Appearance CLOUDY (CLEAR); Bacteria FEW /HPF (NEGATIVE); Bilirubin NEGATIVE (NEGATIVE); Blood SMALL Ery/ul (0-5); Glucose 150 mg/dL (NEGATIVE); Ketones NEGATIVE (NEGATIVE); Leukocyte Esterase NEGATIVE (NEGATIVE); Mucus SLIGHT /HPF (NEGATIVE); Nitrite NEGATIVE (NEGATIVE); Non-Squamous Epithelial Cells RARE /HPF (FEW); Protein,Urine Dip >=500 (Negative); RBC 51-100 /HPF (0-2); Specific Gravity 1.011 (1.005-1.025); Urobilinogen NEGATIVE mg/dL (0-1); WBC 26-50 /HPF (0-5)
[2020-01-04 19:15] LABS: Amphetamine,Urine NEGATIVE (NEGATIVE); Barbiturate,Urine NEGATIVE (NEGATIVE); Benzodiazepine,Urine NEGATIVE (NEGATIVE); Cocaine,Urine NEGATIVE (NEGATIVE); Methadone,Urine NEGATIVE (NEGATIVE); Opiate,Urine POSITIVE (NEGATIVE); PCP,Urine NEGATIVE (NEGATIVE); THC,Urine NEGATIVE (NEGATIVE)
--- NOTE | 2020-01-04 20:59 | XRAY ---
Exam: Portable supine film of the abdomen including lower chest and upper abdomen from 01/04/2020. Comparison: CT of the abdomen and pelvis with IV contrast from 05/05/2019. Indication: Oral gastric tube placement, unresponsive. Findings: Oral gastric tube enters the stomach with the tip pointing distally within the projection of either the distal antrum of stomach or proximal duodenum. It is in satisfactory position. Visualized bowel gas pattern within the upper abdomen appears unremarkable. Chest findings were previously discussed on the [facility] portable chest radiograph obtained about the same time. Impression: 1. Oral gastric tube tip pointing distally within the right upper quadrant, probably either within the distal antrum of the stomach or proximal duodenum. This is in satisfactory position.
--- NOTE | 2020-01-04 21:00 | XRAY ---
Exam: AP supine portable chest film from 01/04/2020. Comparison: AP upright portable chest film from 11/12/2019. Indication: Patient unresponsive, endotracheal tube placement. Findings: The transverse heart size is normal. A pacer pad overlies the upper right chest. There appears to be a relatively long right coronary artery stent representing no change. Left-sided javier catheter is noted with the tip pointing inferiorly near the caval-atrial junction representing no change. There has been interval placement of an endotracheal tube with the tip located about 2.5 cm above the rosa in satisfactory position. NG tube extends into the stomach with the distal aspect coursing off the inferior margin of film in the upper abdomen. Prior right basilar consolidation/atelectasis appears slightly decreased. However, there appears to be new bilateral perihilar and right lower lung field interstitial lung edema with perhaps minimal increase of the prior mild to moderate right basilar pleural effusion. There is likely a small amount of pleural fluid rising to the right lung apex as well, as right apical pleural reaction has increased. The central right upper lung field and left lung otherwise remain clear. Impression: 1. New endotracheal tube and NG tube in satisfactory position, as described above. 2. There is new bilateral perihilar and right lower lung field interstitial lung edema as compared to 11/12/2019. Mild/moderate right basilar pleural effusion may be slightly larger. These findings are suggestive of acute cardiac decompensation. 3. Prior right basilar consolidation/atelectasis appears less prominent as compared to 11/12/2019. 4. Left-sided javier catheter and right coronary artery stent are again identified.
[2020-01-04 22:38] LABS: Lymphocytes 10 % (24-44); Monocyte 4 % (0.0-12.0); Neutrophils 86 % (36.-66.); Total Cells Counted 100
[2020-01-04 22:39] LABS: ANISOCYTOSIS 2+; Platelet Estimate NORMAL (NORMAL); Poikilocytosis 2+
== END 2020-01-04 18:30 | disposition short-term general hospital (02) ==
LOC: ED 16:43
DX: I46.9 Cardiac arrest, cause unspecified (principal); I48.91 Unspecified atrial fibrillation; J44.9 Chronic obstructive pulmonary disease, unspecified; Z72.0 Tobacco use
CPT/HCPCS: 36415; 36600; 71045; 74018; 80053; 80307; 81001; 82375; 82803; 82962; 83605; 83735; 84484; 85025; 85379; 85610; 87086; 93005; 94002; 94799; 96365; 96367; 96372; 96374; 96375; 99285; 99291; J0171; J1650; J2250; J3480